=== PATIENT | male | born 1960 | race Caucasian/White ===

== ENCOUNTER 2016-04-26 19:07 | Inpatient (IN) | payer OTHER ==
[~2016-04-26] VITALS: Ht 177.8 cm; Wt 109.6 kg
[2016-04-26 19:25] LABS: BASO % 0.2 %; BASO ABS # 0.03 K/uL (0-0.2); COMPLETE YES; EOS % 0.2 %; HEMATOCRIT 44.3 % (42-52); IG% 0.4 %; LYMPH % 19.6 %; LYMPH ABS # 2.38 K/uL (1.2-3.4); MEAN CELL VOLUME 84.9 fL (80-100); MEAN CORPUSCULAR HEMOGLOBIN 31.6 pg (25-34); MEAN CORPUSCULAR HGB CONC 37.2 g/dl (32-36); MEAN PLATELET VOLUME 11.7 fL (7.4-10.4); MONO % 5.2 %; NEUT % 74.4 %; PLATELET COUNT 225 K/uL (130-400); RED BLOOD COUNT 5.22 M/uL (4.7-6.1); WHITE BLOOD COUNT 12.15 K/uL (4.8-10.8)
[2016-04-26] MEDS ORDERED: NAPR1TAB9 PO (19:34)
[2016-04-26] MEDS ORDERED: CETI10TA84 PO (19:34)
--- NOTE | 2016-04-26 19:45 | DIAGNOSTIC IMAGING REPORT ---
CHEST ONE VIEW PORTABLE CLINICAL HISTORY: Chest pain. COMPARISON STUDY: No previous studies for comparison. FINDINGS: Pacer pads overlie the chest. There is mild elevation of the right hemidiaphragm. Evaluation of the chest is compromised due to overlying pacer pads. No consolidation is identified and there is no evidence of pulmonary edema. There is mild mediastinal widening. Cardiac size is normal. IMPRESSION: 1. No acute cardiopulmonary findings. 2. Mild mediastinal widening, a finding of questionable significance. 3. No evidence of pulmonary edema. Electronically signed by: Tevin Reeder M.D. 04/26/2016 7:43 PM Dictated Date/Time: 04/26/2016 7:42 PM
[2016-04-26 19:53] LABS: BLOOD UREA NITROGEN 19 mg/dl (7-18); BUN/CREATININE RATIO 15.6 (10-20); CALCIUM 9.3 mg/dl (8.5-10.1); CARBON DIOXIDE 20 mmol/L (21-32); CHLORIDE 104 mmol/L (98-107); GLUCOSE 366 mg/dl (70-99); POTASSIUM 4.8 mmol/L (3.5-5.1); SODIUM 137 mmol/L (136-145)
[2016-04-26 20:03] LABS: BETA-HYDROXYBUTYRATE 6.34 mg/dL (0.2-2.81); CKMB/CK RATIO 2.2 (0-3.0)
[2016-04-26] MEDS ORDERED: CETIRIZINE HCL 10 MG TAB PO PRN (21:00)
[2016-04-26] MEDS ORDERED: ONDANSETRON INJ 2 MG/ML 2 ML VIAL IV PRN (21:00)
[2016-04-26] MEDS ORDERED: GLUCOSE 10 TABS/TUBE PO PRN (21:00)
[2016-04-26] MEDS ORDERED: ZOLPIDEM TARTRATE 5 MG TAB PO PRN (21:00)
[2016-04-26] MEDS ORDERED: GLUCAGON FOR INJ 1 MG VIAL SQ PRN (21:00)
[2016-04-26] MEDS ORDERED: GLUCOSE 40% GEL 15 GM TUBE PO PRN (21:00)
[2016-04-26] MEDS ORDERED: DEXTROSE 50% 50 ML SYR IV PRN (21:00)
[2016-04-26] MEDS ORDERED: ACETAMINOPHEN 325 MG TAB PO PRN (21:00)
--- NOTE | 2016-04-26 21:00 | EMERGENCY ROOM VISIT NOTE ---
History Report prepared by Deborah: Nina Zavala Under the Supervision of: Dr. Guerrero Conroy D.O. First contact with patient: 19:03 Chief Complaint: BRADYCARDIA Stated Complaint: CARDIAC, BRADYCARDIA History of Present Illness The patient is a 55 year old male who presents to the Emergency Room via EMS to be evaluated after an episode of syncope that occurred this morning. He states that he completely passed out and woke up on the floor. He notes that he did not hit his head when he fell. Before passing out, the patient felt light headed and dizzy. He denies taking daily medications. Per EMS, the patient stated to feel weak two weeks ago. He went to Urgent Care and was told that he had a third degree heart block. He was also told that his sugars were high. The patient denies headache, neck pain, cough, runny nose, chest pain, nausea, vomiting, diarrhea, abdominal pain, shortness of breath. Source of History: patient, EMS Onset: this morning Position: other (global) Quality: other (syncope, weakness) Timing: other (episode) Associated Symptoms: + LOC, No SOB, No abdominal pain, No chest pain, No headache, No nausea, No neck pain, No vomiting Note: Before passing out, the patient felt light headed and dizzy. The patient stated to feel weak two weeks ago. He denies runny nose. Review of Systems See HPI for pertinent positives & negatives. A total of 10 systems reviewed and were otherwise negative. Past Medical & Surgical Medical Problems: (1) Complete heart block (2) No Known Active Medical Problems Family History No pertinent family history Social History Marital Status: Housing Status: lives with family Occupation Status: employed Current/Historical Medications Scheduled PRN Cetirizine (Zyrtec), 10 MG PO DAILY PRN for ALLERGIC REACTION Naproxen (Aleve), 440 MG PO BID PRN for Headache or Pain Allergies Coded Allergies: Penicillins (Verified Allergy, Unknown, from childhood, 04/26/16) Physical Exam Vital Signs Date Time Temp Pulse Resp B/P Pulse Ox O2 Delivery O2 Flow Rate FiO2 04/26/16 20:54 32 17 96 04/26/16 20:49 36 14 96 04/26/16 20:44 34 15 129/84 97 04/26/16 20:39 34 15 97 04/26/16 20:34 34 10 97 04/26/16 20:29 33 16 138/70 97 04/26/16 20:24 34 15 97 04/26/16 20:19 35 13 97 04/26/16 20:14 34 18 117/63 97 04/26/16 20:09 34 17 97 04/26/16 20:04 33 16 96 04/26/16 19:59 35 19 129/73 97 04/26/16 19:54 34 13 97 04/26/16 19:49 34 14 99 04/26/16 19:44 34 17 135/62 97 04/26/16 19:39 34 15 98 04/26/16 19:34 34 16 98 04/26/16 19:29 132/67 04/26/16 19:27 34 16 97 04/26/16 19:22 34 18 98 04/26/16 19:17 34 13 139/68 04/26/16 19:15 35 04/26/16 19:07 97 Room Air 04/26/16 19:07 97 Room Air 04/26/16 19:07 37.1 35 15 139/68 97 Room Air Physical Exam GENERAL: Sitting up in bed, in no acute distress, nontoxic EYE EXAM: normal conjunctiva OROPHARYNX: no exudate, no erythema, lips, buccal mucosa, and tongue normal and mucous membranes are moist NECK: supple, no nuchal rigidity, no adenopathy, non-tender LUNGS: Clear to auscultation. Normal chest wall mechanics HEART: Bradycardic, no murmurs, S1 normal and S2 normal ABDOMEN: abdomen soft, non-tender, normo-active bowel sounds, no masses, no rebound or guarding. BACK: Back is symmetrical on inspection and there is no deformity, no midline tenderness, no CVA tenderness. SKIN: no rashes and no bruising UPPER EXTREMITIES: upper extremities are grossly normal. LOWER EXTREMITIES: No pitting edema. NEURO EXAM: Normal sensorium, cranial nerves II-XII grossly intact, normal speech, no gross weakness of arms, no gross weakness of legs. Medical Decision & Procedures ER Provider Diagnostic Interpretation: Xray results per the radiologist and my interpretation. CHEST ONE VIEW PORTABLE CLINICAL HISTORY: Chest pain. COMPARISON STUDY: No previous studies for comparison. FINDINGS: Pacer pads overlie the chest. There is mild elevation of the right hemidiaphragm. Evaluation of the chest is compromised due to overlying pacer pads. No consolidation is identified and there is no evidence of pulmonary edema. There is mild mediastinal widening. Cardiac size is normal. IMPRESSION: 1. No acute cardiopulmonary findings. 2. Mild mediastinal widening, a finding of questionable significance. 3. No evidence of pulmonary edema. Electronically signed by: Tevin Reeder M.D. 04/26/2016 7:43 PM Dictated Date/Time: 04/26/2016 7:42 PM Laboratory Results 04/26/16 18:50 Red Blood Count 5.22, Mean Corpuscular Volume 84.9, Mean Corpuscular Hemoglobin 31.6, Mean Corpuscular Hemoglobin Concent 37.2, Mean Platelet Volume 11.7, Neutrophils (%) (Auto) 74.4, Lymphocytes (%) (Auto) 19.6, Monocytes (%) (Auto) 5.2, Eosinophils (%) (Auto) 0.2, Basophils (%) (Auto) 0.2, Neutrophils # (Auto) 9.04, Lymphocytes # (Auto) 2.38, Monocytes # (Auto) 0.63, Eosinophils # (Auto) 0.02, Basophils # (Auto) 0.03 04/26/16 18:50 Test 04/26/16 18:50 White Blood Count 12.15 K/uL (4.8-10.8) Red Blood Count 5.22 M/uL (4.7-6.1) Hemoglobin 16.5 g/dL (14.0-18.0) Hematocrit 44.3 % (42-52) Mean Corpuscular Volume 84.9 fL (80-100) Mean Corpuscular Hemoglobin 31.6 pg (25-34) Mean Corpuscular Hemoglobin Concent 37.2 g/dl (32-36) Platelet Count 225 K/uL (130-400) Mean Platelet Volume 11.7 fL (7.4-10.4) Neutrophils (%) (Auto) 74.4 % Lymphocytes (%) (Auto) 19.6 % Monocytes (%) (Auto) 5.2 % Eosinophils (%) (Auto) 0.2 % Basophils (%) (Auto) 0.2 % Neutrophils # (Auto) 9.04 K/uL (1.4-6.5) Lymphocytes # (Auto) 2.38 K/uL (1.2-3.4) Monocytes # (Auto) 0.63 K/uL (0.11-0.59) Eosinophils # (Auto) 0.02 K/uL (0-0.5) Basophils # (Auto) 0.03 K/uL (0-0.2) RDW Standard Deviation 41.2 fL (36.4-46.3) RDW Coefficient of Variation 13.3 % (11.5-14.5) Immature Granulocyte % (Auto) 0.4 % Immature Granulocyte # (Auto) 0.05 K/uL (0.00-0.02) Anion Gap 13.0 mmol/L (3-11) Est Creatinine Clear Calc Drug Dose 85.6 ml/min Estimated GFR () 78.4 Estimated GFR (Non- 67.7 BUN/Creatinine Ratio 15.6 (10-20) Calcium Level 9.3 mg/dl (8.5-10.1) Total Creatine Kinase 152 U/L (39-308) Creatine Kinase MB 3.3 ng/ml (0.5-3.6) Creatine Kinase MB Ratio 2.2 (0-3.0) Troponin I < 0.015 ng/ml (0-0.045) Beta-Hydroxybutyric Acid 6.34 mg/dL (0.2-2.81) Lyme Disease IgM Antibody NEG (NEG) Laboratory results per my review. ECG Indication: syncope Rate (beats per minute): 35 Rhythm: sinus bradycardia Findings: other (complete heart block) Change: Pre-hospital EKG: Complete heart block at a rate of 3, right axis deviation, right bundle branch block ED Course ED COURSE: Vital signs were reviewed and showed that the patient is bradycardic. The patients medical record was reviewed The above diagnostic studies were performed and reviewed. ED treatments and interventions as stated above. 1904: I reviewed the pre hospital EKG: Complete heart block at a rate of 3, right axis deviation, right bundle branch block 1906: The patient was evaluated in room A1. A complete history and physical examination was performed. 1941: I updated the patient and his family. 2005: I discussed the case with Dr. Gonzalez ([facility]) ; he will further evaluate the patient. 2007: Upon reevaluation, the patient is resting. I discussed my findings with the patient and he understands and agrees with the treatment plan. Based on the patients age, coexisting illnesses, exam and lab findings the decision to treat as an inpatient was made. The patient remained stable while under my care. The patient will be evaluated for further management. Medical Decision Differential diagnosis includes etiologies such as vasovagal event, infection, hypoglycemia, electrolyte abnormalities, cardiac sources, intracerebral event, toxicologic, neurologic, as well as others were entertained. The patient is a 55 year old male who presents to the ED with complaints of an episode of syncope and weakness. Patient notes that he has not been feeling well for the past 2 weeks. He presented to urgent care who did an EKG which showed a complete heart block. He was then transferred via ALS to ER. Upon presentation he is found to have a complete heart block with systolic blood pressures in the 140s. Patient has no other complaints at this time. He denies chest pain and shortness of breath. He does admit to feeling very weak this morning, lightheaded and passing out. He denies any headaches or neck pain. He is completely neurologically intact. Chest x-ray showed a wide mediastinum but as he has no chest pain at this time and consequently did not pursue widened mediastinum as he is currently symptomatically. His case was discussed with internal medicine and will be admitted for complete heart block with a stable systolic blood pressures. Consults Time Called: 1999 Consulting Physician: Dr. Gonzalez ([facility]) Returned Call: 2005 I discussed the case with Dr. Gonzalez ([facility]); he will further evaluate the patient. Impression Primary Impression: Complete heart block Additional Impression: Syncope Scribe Attestation The scribe's documentation has been prepared under my direction and personally reviewed by me in its entirety. I confirm that the note above accurately reflects all work, treatment, procedures, and medical decision making performed by me. Departure Information Dispostion Being Evaluated By Hospitalist Patient Instructions A Signature Page, My [facility] Problem Qualifiers Additional Impression: Syncope Syncope type: heat syncope Encounter type: initial encounter Qualified Codes: T67.1XXA - Heat syncope, initial encounter
[2016-04-26 21:29] VITALS: BP 142/57; PULSE 34; TEMP 36.5; O2SAT 97; BMI 33.1
[2016-04-26] MEDS: NSS + 20MEQ KCL 1000ML 1,000 ML IV SCH (21:51)
[2016-04-26] MEDS: INSULIN ASPART 100 UNITS/ML 3 ML PEN SC SCH (22:34)
--- NOTE | 2016-04-27 03:53 | History and Physical ---
History & Physical Date & Time of Service: Apr 27, 2016 at 03:45 Chief Complaint: Complete Heart Block Primary Care Physician: No Doctor, Assigned History of Present Illness Source: patient, spouse The patient is a 55-year-old male who presents emergency department via EMS after a syncopal episode that occurred earlier in the morning prior to arrival, where he passed out and woke up on the floor. He had an episode of feeling weak approximately 2 weeks ago, and reportedly went to urgent care and was told that he had a third-degree heart block, and that his sugars were high. He admits to not following up appropriately for sugars or heart issues. Family History No pertinent family history Social History Smoking Status: Never Smoker Smokeless Tobacco Use: No Alcohol Use: none Drug Use: none Marital Status: Housing status: lives with family Occupational Status: employed Multi-Drug Resistant Organisms History of MDRO: No Allergies Coded Allergies: Penicillins (Verified Allergy, Unknown, from childhood, 04/26/16) Home Medications Scheduled PRN Cetirizine (Zyrtec), 10 MG PO DAILY PRN for ALLERGIC REACTION Naproxen (Aleve), 440 MG PO BID PRN for Headache or Pain Review of Systems The patient denies chest pain, palpitations, shortness of breath, cough, lower extremity swelling, vision change, hearing change, sore throat, fevers, chills, sweats, weight change, fatigue, nausea, vomiting, abdominal pain, pelvic pain, blood in urine or stool, dysuria, urinary frequency or urgency, rash, abnormal bruising or bleeding, imbalance, focal or generalized weakness, numbness or tingling in arms or legs, arthralgias or myalgias, back or neck pain, night sweats, or allergy symptoms. The review of systems is otherwise negative other than for that already noted above, and at least 10 systems have been reviewed. Physical Exam Vital Signs Date Time Temp Pulse Resp B/P Pulse Ox O2 Delivery O2 Flow Rate FiO2 04/27/16 00:01 Room Air 04/26/16 21:29 36.5 34 16 142/57 97 Room Air 04/26/16 21:26 37.1 33 14 130/70 97 04/26/16 21:05 130/70 04/26/16 21:04 33 14 97 04/26/16 20:59 33 17 116/68 96 04/26/16 20:54 32 17 96 04/26/16 20:49 36 14 96 04/26/16 20:44 34 15 129/84 97 04/26/16 20:39 34 15 97 04/26/16 20:34 34 10 97 04/26/16 20:29 33 16 138/70 97 04/26/16 20:24 34 15 97 04/26/16 20:19 35 13 97 04/26/16 20:14 34 18 117/63 97 04/26/16 20:09 34 17 97 04/26/16 20:04 33 16 96 04/26/16 19:59 35 19 129/73 97 04/26/16 19:54 34 13 97 04/26/16 19:49 34 14 99 04/26/16 19:44 34 17 135/62 97 04/26/16 19:39 34 15 98 04/26/16 19:34 34 16 98 04/26/16 19:29 132/67 04/26/16 19:27 34 16 97 04/26/16 19:22 34 18 98 04/26/16 19:17 34 13 139/68 04/26/16 19:15 35 04/26/16 19:07 97 Room Air 04/26/16 19:07 97 Room Air 04/26/16 19:07 37.1 35 15 139/68 97 Room Air The patient is awake, well-developed and adequately nourished, alert and oriented 3, normocephalic and atraumatic, lying in bed and in no acute distress. HEENT--PERRL, EOMI, mucous membranes moist, and oropharynx normal. Neck--supple, no JVD or bruits, thyroid normal, trachea midline, no adenopathy. Heart--bradycardic, no extra beats, no murmurs, rubs or gallops. Lungs--clear bilaterally with good air movement, no respiratory distress, no accessory muscle use. Abdomen--normal bowel sounds and soft, nontender and nondistended, no hernias or masses, no organomegaly. Extremities--no cyanosis, clubbing or edema. There are good distal pulses b/l. Dermatologic--normal skin turgor, normal color, warm and dry, no abnormal lymph nodes, no rash. Neurologic--cranial nerves II through XII grossly intact, motor and sensory examination normal. Rheumatologic--normal range of motion, nontender, muscles and joints. Psychiatric--normal affect. Diagnostics Laboratory Results Results Past 24 Hours Test 04/26/16 18:50 Range/Units White Blood Count 12.15 4.8-10.8 K/uL Red Blood Count 5.22 4.7-6.1 M/uL Hemoglobin 16.5 14.0-18.0 g/dL Hematocrit 44.3 42-52 % Mean Corpuscular Volume 84.9 80-100 fL Mean Corpuscular Hemoglobin 31.6 25-34 pg Mean Corpuscular Hemoglobin Concent 37.2 32-36 g/dl Platelet Count 225 130-400 K/uL Mean Platelet Volume 11.7 7.4-10.4 fL Neutrophils (%) (Auto) 74.4 % Lymphocytes (%) (Auto) 19.6 % Monocytes (%) (Auto) 5.2 % Eosinophils (%) (Auto) 0.2 % Basophils (%) (Auto) 0.2 % Neutrophils # (Auto) 9.04 1.4-6.5 K/uL Lymphocytes # (Auto) 2.38 1.2-3.4 K/uL Monocytes # (Auto) 0.63 0.11-0.59 K/uL Eosinophils # (Auto) 0.02 0-0.5 K/uL Basophils # (Auto) 0.03 0-0.2 K/uL RDW Standard Deviation 41.2 36.4-46.3 fL RDW Coefficient of Variation 13.3 11.5-14.5 % Immature Granulocyte % (Auto) 0.4 % Immature Granulocyte # (Auto) 0.05 0.00-0.02 K/uL Sodium Level 137 136-145 mmol/L Potassium Level 4.8 3.5-5.1 mmol/L Chloride Level 104 98-107 mmol/L Carbon Dioxide Level 20 21-32 mmol/L Anion Gap 13.0 3-11 mmol/L Blood Urea Nitrogen 19 7-18 mg/dl Creatinine 1.20 0.60-1.40 mg/dl Est Creatinine Clear Calc Drug Dose 85.6 ml/min Estimated GFR () 78.4 Estimated GFR (Non- 67.7 BUN/Creatinine Ratio 15.6 10-20 Random Glucose 366 70-99 mg/dl Calcium Level 9.3 8.5-10.1 mg/dl Total Creatine Kinase 152 39-308 U/L Creatine Kinase MB 3.3 0.5-3.6 ng/ml Creatine Kinase MB Ratio 2.2 0-3.0 Troponin I < 0.015 0-0.045 ng/ml Beta-Hydroxybutyric Acid 6.34 0.2-2.81 mg/dL Lyme Disease IgM Antibody NEG NEG Diagnostic Radiology Patient Name: DAMON DUPREE Unit Number: [id number] Dictated: 04/26/161941 Transcribed: 04/26/161941 Printed Date/Time: [~ rep prt dt]/[~ rep prt tm] [~ rep ct labl] - [~ rep ct ivnm] [facility] [place] [address] Dictated: 04/26/161941 Transcribed: 04/26/161941 JA Printed Date/Time: [~ rep prt dt]/[~ rep prt tm] [~ rep ct labl] - [~ rep ct ivnm] CLINICAL HISTORY: Chest pain. COMPARISON STUDY: No previous studies for comparison. FINDINGS: Pacer pads overlie the chest. There is mild elevation of the right hemidiaphragm. Evaluation of the chest is compromised due to overlying pacer pads. No consolidation is identified and there is no evidence of pulmonary edema. There is mild mediastinal widening. Cardiac size is normal. IMPRESSION: 1. No acute cardiopulmonary findings. 2. Mild mediastinal widening, a finding of questionable significance. 3. No evidence of pulmonary edema. Electronically signed by: Tevin Reeder M.D. 04/26/2016 7:43 PM Dictated Date/Time: 04/26/2016 7:42 PM The status of this report is Signed. Draft = Not yet reviewed or approved by Radiologist. Signed = Reviewed and approved by Radiologist. <AttendingPhy></AttendingPhy> <FamilyPhy></FamilyPhy> <PrimaryPhy></PrimaryPhy> <UnitNumber>[id number]</UnitNumber> <VisitNumber>[id number]</VisitNumber> < PatientName>DAMON DUPREE SHAUN</PatientName> <DateOfBirth>1960</ DateOfBirth> <Location>[facility]</Location> <ServiceDate>04/26/16</ServiceDate> <MNE> ESINDI</MNE> <OrderingPhy>Guerrero Conroy DO</OrderingPhy> <OrderingPhyMNE>f rep ord dr live</OrderingPhyMNE> <DictatingPhyMNE>f rep dict dr live</DictatingPhyMNE > <CCListMNE>f rep ct brigide</CCListMNE> <AdmittingPhyMNE>f pt admit dr live</ AdmittingPhyMNE> <AttendingPhyMNE>f pt attend dr live</AttendingPhyMNE> <ConsultingPhyMNE>f pt consult dr live</ConsultingPhyMNE> <FamilyPhyMNE>f pt fam dr live</FamilyPhyMNE> <OtherPhyMNE>f pt other dr live</OtherPhyMNE> < PrimaryPhyMNE>f pt prim care dr live</PrimaryPhyMNE> <ReferringPhyMNE>f pt referring dr live</ReferringPhyMNE> EKG EKG shows third-degree heart block at a ventricular rate of 35 bpm. Impression Assessment and Plan Syncopal episode associated with third degree heart block--patient will be admitted to the telemetry unit for serial cardiac enzymes, cardiac rhythm monitoring, and a 2-D echocardiogram with Dopplers. We'll continue to keep pacer pads on, but he is not symptomatic at this time. We will gently hydrate with IV fluids, and keep him nothing by mouth after midnight for any potential procedure. We'll consult Dr. Toro from EPS. Hyperglycemia with diabetes mellitus--place on Accu-Cheks before meals and at bedtime with NovoLog coverage, and order a hemoglobin A1c. Based on these tests , we'll determine in the a.m. when his long-term treatment should be. We'll check a fasting lipid profile as well. Allergy--continue cetirizine 10 mg by mouth daily when necessary. Level of Care Telemetry Advanced Directives Existing Advance Directive: No Existing Living Will: No Existing Power of Board Saw Runner: No Resuscitation Status FULL RESUSCITATION VTE Prophylaxis VTE Risk Assessment Done? Y/N: Yes Risk Level: Moderate Given or contraindicated: SCD's Social Service Consult None Apply
[2016-04-27 04:01] VITALS: BP 117/74; PULSE 72; TEMP 36.7; O2SAT 96
[2016-04-27 04:28] LABS: BASO % 0.2 %; BASO ABS # 0.02 K/uL (0-0.2); COMPLETE YES; EOS % 0.8 %; HEMATOCRIT 43.2 % (42-52); IG% 0.3 %; LYMPH % 30.1 %; LYMPH ABS # 2.81 K/uL (1.2-3.4); MEAN CELL VOLUME 85.9 fL (80-100); MEAN CORPUSCULAR HGB CONC 36.1 g/dl (32-36); MEAN PLATELET VOLUME 11.4 fL (7.4-10.4); MONO % 7.2 %; NEUT % 61.4 %; PLATELET COUNT 182 K/uL (130-400); RED BLOOD COUNT 5.03 M/uL (4.7-6.1); WHITE BLOOD COUNT 9.33 K/uL (4.8-10.8)
[2016-04-27 04:39] LABS: PARTIAL THROMBOPLASTIN RATIO 0.9; PROTHROMBIN TIME (PATIENT) 10.8 SECONDS (9.0-12.0)
[2016-04-27 05:00] LABS: BUN/CREATININE RATIO 19.3 (10-20); CALCIUM 8.4 mg/dl (8.5-10.1); CREATININE 0.88 mg/dl (0.60-1.40); MAGNESIUM 2.2 mg/dl (1.8-2.4)
[2016-04-27 05:03] LABS: CHOLESTEROL/HDL RATIO 4.5
[2016-04-27 07:26] LABS: ESTIMATED AVERAGE GLUCOSE 246 mg/dl; HA1C FLAG Normal (Normal)
[2016-04-27] MEDS: NSS + 20MEQ KCL 1000ML 1,000 ML IV SCH (08:00)
[2016-04-27 08:27] VITALS: BP 126/76; PULSE 67; TEMP 37.2; O2SAT 96
[2016-04-27] MEDS: INSULIN ASPART 100 UNITS/ML 3 ML PEN SC SCH ×4 (09:05→21:10)
[2016-04-27 09:48] LABS: CKMB/CK RATIO 2.4 (0-3.0)
--- NOTE | 2016-04-27 11:06 | ECHOCARDIOGRAM REPORT ---
*NOTICE TO RECEIVING [employer] This information is strictly Confidential and protected under [place] law. [place] law prohibits you from making any further disclosure of this information unless further disclosure is expressly permitted by the written consent of the person to whom it pertains or is authorized by law. A general authorization for the release of medical or other information is not sufficient for this purpose. Hospital accepts no responsibility if the information is made available to any other person, INCLUDING THE PATIENT. Interpretation Summary * Name: DAMON DUPREE Study Date: 04/27/2016 07:49 AM BP: 117/74 mmHg * Patient Location: C.2E\S\E208\S\1 HR: 72 * : 1960 (M/d/yyyy) Gender: Male Height: 70 in * Age: 55 yrs Ethnicity: [place] Weight: 237 lb * Ordering Physician: Adonis Gonzalez * Performed By: Nina Rodriguez * * Reason For Study: COMPLETE HEART BLOCK * BSA: 2.2 m2 * -- Conclusions -- * Left ventricular systolic function is normal. * No regional wall motion abnormalities noted. * Ejection Fraction = 60-65%. * No significant valvular pathology. Procedure Details * A complete two-dimensional transthoracic echocardiogram was performed (2D, M-mode, Doppler and color flow Doppler). * A contrast injection of Definity was performed to improve assessment of LV function. * Contrast was injected into an intravenous site in the left arm. * One vial of Definity ultrasound contrast was diluted in normal saline to a total volume of 10 ml. A total of '3' ml of solution was administered during imaging. * Lot # [id number] of Definity utilized for procedure. * Expiration date 10/01. Left Ventricle * The left ventricle is normal in size. * There is normal left ventricular wall thickness. * Left ventricular systolic function is normal. * Ejection Fraction = 60-65%. * No regional wall motion abnormalities noted. Right Ventricle * The right ventricle is grossly normal size. * The right ventricular systolic function is normal as assessed by tricuspid annular plane systolic excursion (TAPSE) (normal >1.5 cm). Atria * The left atrial size is normal. * Right atrial size is normal. * No ASD detected; PFO is not assessed. Mitral Valve * The mitral valve is normal in structure and function. * There is no mitral valve stenosis. * There is trace mitral regurgitation. Tricuspid Valve * The tricuspid valve is not well visualized, but is grossly normal. * Significant tricuspid regurgitation is absent. Aortic Valve * The aortic valve is normal in structure and function. * No hemodynamically significant valvular aortic stenosis. * There is no significant aortic regurgitation. Pulmonic Valve * The pulmonary valve is not well seen, but the Doppler examination is normal without significant regurgitation or stenosis. * There is no pulmonic valvular regurgitation. Great Vessels * The aortic root is normal size. * Mildly dilated ascending aorta. Pericardium/Pleural * There is no pericardial effusion. MMode 2D Measurements and Calculations IVSd 1.0 cm IVSs 1.6 cm LVIDd 3.9 cm LVIDs 2.1 cm LVPWd 0.85 cm LVPWs 1.4 cm IVS/LVPW 1.2 FS 45.1 % EDV(Teich) 65.6 ml ESV(Teich) 15.1 ml EF(Teich) 77.1 % EDV(cubed) 59.0 ml ESV(cubed) 9.8 ml EF(cubed) 83.5 % % IVS thick 57.7 % % LVPW thick 58.1 % LV mass(C)d 110.2 grams LV mass(C)dI 49.1 grams/m\S\2 LV mass(C)s 101.5 grams LV mass(C)sI 45.3 grams/m\S\2 CO(Teich) 3.5 l/min CI(Teich) 1.6 l/min/m\S\2 SV(Teich) 50.6 ml SI(Teich) 22.5 ml/m\S\2 CO(cubed) 3.4 l/min CI(cubed) 1.5 l/min/m\S\2 SV(cubed) 49.2 ml SI(cubed) 21.9 ml/m\S\2 ACS 1.4 cm asc Aorta Diam 3.4 cm LVOT diam 2.0 cm LVOT area 3.1 cm\S\2 LVAd ap4 27.5 cm\S\2 LVLd ap4 9.0 cm EDV(MOD-sp4) 68.0 ml LVAs ap4 15.4 cm\S\2 LVLs ap4 7.7 cm ESV(MOD-sp4) 26.0 ml EF(MOD-sp4) 61.8 % LVAd ap2 28.9 cm\S\2 LVLd ap2 8.6 cm EDV(MOD-sp2) 79.0 ml LVAs ap2 16.9 cm\S\2 LVLs ap2 8.2 cm ESV(MOD-sp2) 30.0 ml EF(MOD-sp2) 62.0 % CO(MOD-sp4) 2.9 l/min CI(MOD-sp4) 1.3 l/min/m\S\2 SV(MOD-sp4) 42.0 ml SI(MOD-sp4) 18.7 ml/m\S\2 CO(MOD-sp2) 3.4 l/min CI(MOD-sp2) 1.5 l/min/m\S\2 SV(MOD-sp2) 49.0 ml SI(MOD-sp2) 21.8 ml/m\S\2 Doppler Measurements and Calculations MV E max cayla 101.7 cm/sec MV A max cayla 62.2 cm/sec MV E/A 1.6 MV dec time 0.19 sec Ao V2 max 138.5 cm/sec Ao max PG 7.7 mmHg Ao max PG (full) 2.9 mmHg BRYNN(V,A) 2.4 cm\S\2 BRYNN(V,D) 2.4 cm\S\2 LV V1 max PG 4.8 mmHg LV V1 mean PG 2.2 mmHg LV V1 max 109.3 cm/sec LV V1 mean 65.6 cm/sec LV V1 VTI 23.3 cm SV(LVOT) 71.6 ml SI(LVOT) 31.9 ml/m\S\2 PA V2 max 64.2 cm/sec PA max PG 1.6 mmHg
[2016-04-27 11:10] VITALS: BP 118/70; PULSE 68; TEMP 36.7; O2SAT 96
[2016-04-27 11:21] VITALS: BMI 33.2
[2016-04-27] MEDS ORDERED: BACITRACIN 50000 UNIT VIAL ONE (11:48)
[2016-04-27] MEDS ORDERED: LIDOCAINE HCL 1% 20 ML VIAL ONE (11:48)
[2016-04-27] MEDS ORDERED: BUPIVACAINE 0.5 % 5 MG/1 ML MPF 30ML VIAL ONE (11:48)
--- NOTE | 2016-04-27 11:59 | Procedure Note ---
Pre-Mod Sedation Assessment General Date of Moderate Sedation: Apr 27, 2016. Vital Signs: Vital Signs Past 12 Hours Date Time Temp Pulse Resp B/P Pulse Ox O2 Delivery O2 Flow Rate FiO2 04/27/16 11:10 36.7 68 20 118/70 96 Room Air 04/27/16 08:27 37.2 67 20 126/76 96 Room Air 04/27/16 08:00 Room Air 04/27/16 04:01 36.7 72 17 117/74 96 Room Air 04/27/16 04:00 Room Air 04/27/16 00:01 Room Air Review Cardiovascular: regular rate, rhythm, no JVD, no murmur Abdomen: soft Lungs: lungs clear Airway Class: II Pre-Sedation Airway Assessment Oral Cavity: WNL Able to Visualize Vocal Cords: No Short Thick Neck: Yes Hx of Sleep Apnea: No Smoking Status: Never Smoker Mallampati Classification: Class II ASA Classification: Class II Procedure Planning Contraindications-for Mod Sed: None Yes Notes The planned sedation has been discussed with the patient and consent obtained. I have identified the patient, determined the appropriateness of sedation and have assessed the patient immediately prior to the procedure. All medicine(s) and interventions are by my order.
--- NOTE | 2016-04-27 11:59 | History & Physical Bridge Note ---
H&P Re-Evaluation Bridge Note: I have examined the patient, reviewed the History & Physical and in the interval since the performance of the History & Physical I have noted the following changes of clinical significance: Full EP consult dictated. Pt with intermittent CHB symptomatic; lyme titer negative no other clear etiology. Pt for dual chamber ppm.
[2016-04-27] MEDS ORDERED: CLINDAMYCIN IV 600 MG in DEXTROSE 5% ADD-VANTAGE 50ML 50 ML IV SCH (12:00)
[2016-04-27] MEDS ORDERED: FENTANYL CITRATE INJ 50 MCG/1 ML 2 ML VIAL ONE ×2 (12:19→13:24)
[2016-04-27] MEDS ORDERED: MIDAZOLAM HCL 5 MG/ML 1 ML VIAL ONE (12:19)
[2016-04-27] MEDS ORDERED: RANITIDINE HCL 25 MG/ML INJ ONE (12:45)
[2016-04-27] MEDS ORDERED: DiphenhydrAMINE HCL 50 MG/ML VIAL ONE (12:45)
[2016-04-27] MEDS ORDERED: HYDROCORTISONE SOD SUCCINATE 100 MG/2 ML VIAL ONE (12:45)
--- NOTE | 2016-04-27 12:46 | CARDIOLOGY CONSULTATION ---
DATE OF CONSULTATION: 04/27/2016 PERTINENT HISTORY: Mr. Case is a 55-year-old white male admitted yesterday with complaints of dizziness and a complete heart block. This consultation was ordered to assist in his cardiac management. The patient's recent history began approximately 2 or 1-1/2 weeks ago. The patient began to develop profound episodes of dizziness lasting 10-15 minutes. This seemed to occur every 3-4 days. Yesterday, while bending over, the patient developed another episode of his profound dizziness. He stood up and then fell backwards. He does not feel any loss of consciousness. He presented to a walk-in medical clinic and his heart rate was noted to be 30 beats per minute. He was sent directly to the Emergency Room for further care. On arrival here, the patient was noted to be in complete heart block. He was still complaining of dizziness. The patient then converted to sinus rhythm overnight and is now completely asymptomatic. The patient has never known of a cardiac event. He has never had a cardiac catheterization. He has never experienced exertional chest pain or limiting dyspnea. He further denies gagan syncope, PND, orthopnea, palpitations, lower extremity edema, and claudication. Complaints of presyncope as described above. Currently, the patient is resting comfortably in bed without complaints. He had a long discussion regarding treatment of intermittent complete heart block. PAST MEDICAL HISTORY: 1. Diabetes mellitus. 2. Allergic rhinitis. MEDICATIONS: 1. Zyrtec 10 mg daily. 2. Insulin sliding scale. ALLERGIES: PENICILLIN -- HIVES. SOCIAL HISTORY: The patient works in construction. He is and lives with his . He does not smoke cigarettes, but does chew tobacco. Admits to drinking 1 case of beer every week. FAMILY HISTORY: Father is 83 and has had a lobectomy for tuberculosis back in the 60s. Mother is 82 and relatively healthy. Siblings are alive and well. REVIEW OF SYSTEMS: A 10-point review of systems is negative except for that described above. TODAY'S PHYSICAL EXAMINATION: GENERAL: He is a well-developed and well-nourished white male, in no acute distress. VITAL SIGNS: Blood pressure is 118/70 with a regular pulse of 60. Respiratory rate is 20. The patient is afebrile at 36.7 degrees Celsius. Saturations 96% on room air. HEENT: Negative. NECK: Supple with full carotid upstrokes. There are no carotid bruits. Jugular venous pressure is flat at 90 degrees. There is no thyromegaly. CARDIOVASCULAR: Reveals a regular rhythm with normal S1 and S2. No S3, S4, or murmurs are noted. LUNGS: Clear without rales, rhonchi, or wheezes. ABDOMEN: Soft and nontender without bruits. EXTREMITIES: Reveal intact radial artery pulses bilaterally. There is no peripheral edema. DATA: CBC notes a hemoglobin of 15.6, hematocrit 43.2, white count 9.3, and platelet count 180,000. Electrolytes note a sodium of 139, potassium 4.0, chloride 106, bicarbonate 23, BUN 17, creatinine 0.8, and glucose 249. Magnesium level is normal at 2.2. Troponin I level is undetectable at less than 0.015 on 2 occasions. Lipid panel notes a total cholesterol of 232, triglyceride 213, LDL 138, and HDL of 51. TSH is normal at 1.49. INR is 1.0. Lyme titer is negative. EKG on presentation notes sinus tachycardia with complete AV dissociation. There is a junctional escape at approximately 35 beats per minute. A followup ECG notes sinus rhythm and a complete right bundle branch block. tractor trailer operator confirms the same. IMPRESSION: Mr. Case was admitted with symptomatic intermittent complete heart block. The case was discussed in detail with Dr. Browning, who agrees that permanent pacemaking is indicated. The procedure will be performed later today. PLAN: 1. Consult Dr. Browning for dual chamber permanent pacemaker. 2. Further recommendations after the above.
--- NOTE | 2016-04-27 13:58 | Procedure Note ---
Post-Mod Sedation Assessment General Date of Moderate Sedation Apr 27, 2016. Vital Signs: Vital Signs Past 12 Hours Date Time Temp Pulse Resp B/P Pulse Ox O2 Delivery O2 Flow Rate FiO2 04/27/16 12:00 Room Air 04/27/16 11:10 36.7 68 20 118/70 96 Room Air 04/27/16 08:27 37.2 67 20 126/76 96 Room Air 04/27/16 08:00 Room Air 04/27/16 04:01 36.7 72 17 117/74 96 Room Air 04/27/16 04:00 Room Air Review - Discharge Criteria Vital Signs Stable: Yes Alert/Oriented/Conversant: Yes Returned to Baseline Mental St: Yes Nausea Absent/Minimal: Yes Pain/Discomfort/Absent/Minimal: Yes Normal/Baseline Respirations: Yes Active Bleeding?: No Pt Received D/C Instructions: N/A Prescriptions Given: None Specific Proced. D/C Criteria Distal Pulses Present (Cardiac: N/A Groin site assessed-Card Cath: N/A Voided Prior To Discharge: N/A Discharged Patients Adult Escort/Transportation: N/A
[2016-04-27] MEDS ORDERED: ACETAMINOPHEN 325 MG TAB PO PRN (14:00)
--- NOTE | 2016-04-27 14:03 | [facility] Post Operative Brief Note ---
Immediate Operative Summary Operative Date Apr 27, 2016. Pre-Operative Diagnosis INTERMITTENT CHB Post-Operative Diagnosis SAME Procedure(s) Performed DUAL CHAMBER RATE RESPONSIVE PACEMAKER WITH PERHIPHERAL VENOGRAM Surgeon BILL EPPERSON Rn Perioperative Surgeon(s) NONE Estimated Blood Loss <20CC Findings NONE Fluids (cc crystalloids) 150CC Specimens NONE Drains NONE Anesthesia 5MG VERSED AND 125MCG FENANTYL Complication(s) None Disposition PCU
--- NOTE | 2016-04-27 15:21 | Progress Note ---
Subjective Date of Service: Apr 27, 2016. (Farideh Trevino PA-C) Subjective Pt evaluation today including: conversation w/ patient, conversation w/ family , physical exam, chart review, lab review, review of studies, review of inpatient medication list Patient seen and evaluated. Patient with 3rd degree heart block that spontaneously converted to NSR overnight. Only complaint is of some lightheadedness while resting in bed. Patient's HR remained in 70s during my exam. Discussed glucose levels with patient and the need to implement medication and establish PCP. He reports that he was aware his sugars were high but has not taken medications for that. Spoke with Dr. Seymour this AM who evaluated the patient. He underwent pacemaker placement today. (Farideh Trevino PA-C) Problem List Medical Problems: (1) Syncope Status: Acute (Farideh Trevino PA-C) Review of Systems Constitutional: No chills, No fever Eyes: No worsening of vision ENT: No sore throat, No trouble swallowing Respiratory: No cough, No shortness of breath Cardiac: No chest pain Abdomen: No constipation, No diarrhea, No nausea, No pain, No vomiting Male : No dysuria Neurologic: + problem reported (lightheadedness) Skin: No rash (Farideh Trevino PA-C) Medications Current Inpatient Medications Medications (Trade) Dose Ordered Sig/Merissa Route Start Time Stop Time Status Last Admin Dose Admin Potassium Chloride/Sodium Chloride (Nss + 20meq KCl 1000ml) 1,000 ml @ 100 mls/hr Q10H IV 04/26/16 22:00 05/26/16 21:59 04/27/16 08:00 100 MLS/HR Zolpidem Tartrate (Ambien Tab) 5 mg HSZ PRN PO 04/26/16 21:00 05/26/16 20:59 Ondansetron HCl (Zofran Inj) 4 mg Q6H PRN IV 04/26/16 21:00 05/26/16 20:59 Insulin Aspart (novoLOG ASPART) SLIDING SCALE If C... ACHS SC 04/26/16 21:00 05/26/16 20:59 04/27/16 11:00 3 UNITS Glucose (Glucose 40% Gel) UD PRN PO 04/26/16 21:00 05/26/16 20:59 Glucose (Glucose Chew Tab) 1 tabs UD PRN PO 04/26/16 21:00 05/26/16 20:59 Dextrose (Dextrose 50% 50ML Syringe) 50 ml UD PRN IV 04/26/16 21:00 05/26/16 20:59 Glucagon (Glucagon Inj) 1 mg UD PRN SQ 04/26/16 21:00 05/26/16 20:59 Cetirizine HCl 10 mg 10 mg DAILY PRN PO 04/26/16 21:00 05/26/16 20:59 Clindamycin Phosphate/Dextrose (Cleocin Iv/ Dextrose Add-[place] 50ML) 54 ml @ 100 mls/hr 1200 IV 04/27/16 12:00 04/27/16 16:00 04/27/16 12:00 100 MLS/HR Oxycodone/ Acetaminophen (Percocet 5-325MG Tab) 1 tab for pain scale 4-6 2 t... Q6H PRN PO 04/27/16 14:00 05/11/16 13:59 Acetaminophen (Tylenol Tab) 650 mg Q4H PRN PO 04/27/16 14:00 05/27/16 13:59 (Farideh Trevino, SHELBI) Objective Vital Signs Date Time Temp Pulse Resp B/P Pulse Ox O2 Delivery O2 Flow Rate FiO2 04/27/16 14:10 68 18 130/83 94 Room Air 04/27/16 13:55 67 18 128/79 98 Nasal Cannula 6 04/27/16 12:00 Room Air 04/27/16 11:10 36.7 68 20 118/70 96 Room Air 04/27/16 08:27 37.2 67 20 126/76 96 Room Air 04/27/16 08:00 Room Air 04/27/16 04:01 36.7 72 17 117/74 96 Room Air 04/27/16 04:00 Room Air 04/27/16 00:01 Room Air 04/26/16 21:29 36.5 34 16 142/57 97 Room Air 04/26/16 21:26 37.1 33 14 130/70 97 04/26/16 21:05 130/70 04/26/16 21:04 33 14 97 04/26/16 20:59 33 17 116/68 96 04/26/16 20:54 32 17 96 04/26/16 20:49 36 14 96 04/26/16 20:44 34 15 129/84 97 04/26/16 20:39 34 15 97 04/26/16 20:34 34 10 97 04/26/16 20:29 33 16 138/70 97 04/26/16 20:24 34 15 97 04/26/16 20:19 35 13 97 04/26/16 20:14 34 18 117/63 97 04/26/16 20:09 34 17 97 04/26/16 20:04 33 16 96 04/26/16 19:59 35 19 129/73 97 04/26/16 19:54 34 13 97 04/26/16 19:49 34 14 99 04/26/16 19:44 34 17 135/62 97 04/26/16 19:39 34 15 98 04/26/16 19:34 34 16 98 04/26/16 19:29 132/67 04/26/16 19:27 34 16 97 04/26/16 19:22 34 18 98 04/26/16 19:17 34 13 139/68 04/26/16 19:15 35 04/26/16 19:07 97 Room Air 04/26/16 19:07 97 Room Air 04/26/16 19:07 37.1 35 15 139/68 97 Room Air (Farideh Trevino, PA-C) Physical Exam General Appearance: WD/WN, no apparent distress, + pertinent finding ( mentating appropriately; alert) Eyes: sclerae normal ENT: hearing grossly normal Neck: supple, thyroid normal, no JVD, trachea midline Respiratory/Chest: lungs clear, normal breath sounds, no respiratory distress, no accessory muscle use Cardiovascular: regular rate, rhythm, no gallop, no murmur Abdomen: normal bowel sounds, non tender, soft Extremities: + pertinent finding (2+ posterior tibialis pulses; extremities warm to touch without cyanosis) Neurologic/Psychiatric: alert, oriented x 3 Skin: normal color, warm/dry (Farideh Trevino, PA-C) Laboratory Results Last 24 Hours Test 04/26/16 18:50 04/27/16 04:04 04/27/16 06:58 04/27/16 09:02 White Blood Count 12.15 K/uL 9.33 K/uL Red Blood Count 5.22 M/uL 5.03 M/uL Hemoglobin 16.5 g/dL 15.6 g/dL Hematocrit 44.3 % 43.2 % Mean Corpuscular Volume 84.9 fL 85.9 fL Mean Corpuscular Hemoglobin 31.6 pg 31.0 pg Mean Corpuscular Hemoglobin Concent 37.2 g/dl 36.1 g/dl Platelet Count 225 K/uL 182 K/uL Mean Platelet Volume 11.7 fL 11.4 fL Neutrophils (%) (Auto) 74.4 % 61.4 % Lymphocytes (%) (Auto) 19.6 % 30.1 % Monocytes (%) (Auto) 5.2 % 7.2 % Eosinophils (%) (Auto) 0.2 % 0.8 % Basophils (%) (Auto) 0.2 % 0.2 % Neutrophils # (Auto) 9.04 K/uL 5.73 K/uL Lymphocytes # (Auto) 2.38 K/uL 2.81 K/uL Monocytes # (Auto) 0.63 K/uL 0.67 K/uL Eosinophils # (Auto) 0.02 K/uL 0.07 K/uL Basophils # (Auto) 0.03 K/uL 0.02 K/uL RDW Standard Deviation 41.2 fL 41.7 fL RDW Coefficient of Variation 13.3 % 13.3 % Immature Granulocyte % (Auto) 0.4 % 0.3 % Immature Granulocyte # (Auto) 0.05 K/uL 0.03 K/uL Sodium Level 137 mmol/L 139 mmol/L Potassium Level 4.8 mmol/L 4.0 mmol/L Chloride Level 104 mmol/L 106 mmol/L Carbon Dioxide Level 20 mmol/L 23 mmol/L Anion Gap 13.0 mmol/L 10.0 mmol/L Blood Urea Nitrogen 19 mg/dl 17 mg/dl Creatinine 1.20 mg/dl 0.88 mg/dl Est Creatinine Clear Calc Drug Dose 85.6 ml/min 114.8 ml/min Estimated GFR () 78.4 112.1 Estimated GFR (Non- 67.7 96.7 BUN/Creatinine Ratio 15.6 19.3 Random Glucose 366 mg/dl 249 mg/dl Estimated Average Glucose 246 mg/dl Hemoglobin A1c 10.2 % Calcium Level 9.3 mg/dl 8.4 mg/dl Total Creatine Kinase 152 U/L 89 U/L Creatine Kinase MB 3.3 ng/ml 2.1 ng/ml Creatine Kinase MB Ratio 2.2 2.4 Troponin I < 0.015 ng/ml < 0.015 ng/ml Beta-Hydroxybutyric Acid 6.34 mg/dL Lyme Disease IgM Antibody NEG Prothrombin Time 10.8 SECONDS Prothromb Time International Ratio 1.0 Activated Partial Thromboplast Time 24.0 SECONDS Partial Thromboplastin Ratio 0.9 Magnesium Level 2.2 mg/dl Triglycerides Level 213 mg/dl Cholesterol Level 232 mg/dl HDL Cholesterol 51 mg/dl LDL Cholesterol, Calculated 138 mg/dl VLDL Cholesterol, Calculated 43 mg/dl Cholesterol/HDL Ratio 4.5 Bedside Glucose 222 mg/dl Thyroid Stimulating Hormone (TSH) 1.490 uIu/ml Test 04/27/16 11:38 Bedside Glucose 227 mg/dl (Farideh Trevino, YUDITHC) Assessment and Plan Syncope 2/2 Intermittent Third Degree Heart Block S/P Pacemaker: - Patient spontaneously converted to NSR overnight - Serial cardiac enzymes negative - Echo - EF 60-65%; no valvular abnormality - Cardiology following - pacemaker placed T2DM: New Diagnosis: - HbA1c 10.2 - glucose running in 250s-300s - Start Metformin 500 mg BID and Glipizide 5 mg daily - SSI with goal 100-150 and CF 30 HLD: - Patient with triglycerides 213 and LDL 232 DVT Prophylaxis: - TEDs/SCDs Code Status: - FULL RESUSCITATION Disposition: - Will establish him with PCP prior to D/C (Farideh Trevino PA-C) PA Physician Supervision Note: I interviewed and examined the patient. Discussed with Farideh Trevino PAC and agree with findings and plan as documented in the note. Any exceptions or clarifications are listed here: None PT did have complete heart block with symptoms on presentation and uncontrolled diabetes as evidenced by hgb A1c of 10+ did have Pacemaker placed today compliance is issue and although initially thinking of insulin when pt was thought of would be once a week, but when told would be more will more liklely want medications. will start glipizide and metformin vss now car is regular without murmur lungs are clear complete heart block, ppm diabetes start po meds, education and follow up dyslipidemia, liklely influenced from glucose, will control diabetes, tune up diet and re test as outpt Documented By: Will Payne (Will Payne M.D.)
[2016-04-27] MEDS: OXYCODONE/ACETAMINOPHEN 5-325 TAB PO PRN ×2 (15:32→18:40)
[2016-04-27 15:43] VITALS: BP 118/59; PULSE 88; TEMP 36.8; O2SAT 94
[2016-04-27] MEDS: METFORMIN HCL 500 MG TAB PO SCH (16:45)
[2016-04-27 19:54] VITALS: BP 126/81; PULSE 93; TEMP 36.8; O2SAT 95
[2016-04-27] MEDS ORDERED: NURSING VERBAL MED ORDER ONE (20:45)
[2016-04-28 00:24] VITALS: BP 102/64; PULSE 70; TEMP 37; O2SAT 97
[2016-04-28] MEDS: OXYCODONE/ACETAMINOPHEN 5-325 TAB PO PRN ×2 (05:43→12:51)
[2016-04-28 06:06] LABS: BASO % 0.2 %; HEMATOCRIT 41.5 % (42-52); MEAN CELL VOLUME 87.2 fL (80-100); MEAN CORPUSCULAR HEMOGLOBIN 31.1 pg (25-34); MEAN CORPUSCULAR HGB CONC 35.7 g/dl (32-36); MEAN PLATELET VOLUME 11.3 fL (7.4-10.4); MONO % 6.7 %; NEUT % 65.8 %; PLATELET COUNT 161 K/uL (130-400); RED BLOOD COUNT 4.76 M/uL (4.7-6.1); WHITE BLOOD COUNT 10.11 K/uL (4.8-10.8)
[2016-04-28 06:07] LABS: BASO ABS # 0.02 K/uL (0-0.2); COMPLETE YES; IG% 0.3 %; LYMPH ABS # 2.63 K/uL (1.2-3.4)
[2016-04-28 06:25] LABS: INR 0.9 (0.9-1.1); PARTIAL THROMBOPLASTIN RATIO 0.9
[2016-04-28 06:42] LABS: BUN/CREATININE RATIO 14.3 (10-20); CALCIUM 8.5 mg/dl (8.5-10.1); CREATININE 0.98 mg/dl (0.60-1.40); POTASSIUM 4.5 mmol/L (3.5-5.1)
[2016-04-28] MEDS: METFORMIN HCL 500 MG TAB PO SCH (07:31)
[2016-04-28] MEDS: INSULIN ASPART 100 UNITS/ML 3 ML PEN SC SCH ×2 (07:32→11:50)
--- NOTE | 2016-04-28 07:52 | DIAGNOSTIC IMAGING REPORT ---
CHEST 2 VIEWS ROUTINE CLINICAL HISTORY: Pacemaker insertion. COMPARISON STUDY: Chest radiograph April 26, 2016. FINDINGS: No pneumothorax is identified. There has been interval placement of a dual lead left subclavian pacemaker. Lead tips project over the right atrial appendage and the right ventricle. Cardiomediastinal silhouette is stable. There is no evidence of pulmonary edema. There is no consolidation. Note is made of mild elevation of the right hemidiaphragm. IMPRESSION: No pneumothorax following placement of a dual lead left subclavian pacemaker Electronically signed by: Tevin Reeder M.D. 04/28/2016 7:50 AM Dictated Date/Time: 04/28/2016 7:48 AM
[2016-04-28 07:58] VITALS: BP 107/76; PULSE 75; TEMP 36.8; O2SAT 95
[2016-04-28 08:00] VITALS: O2SAT 95
[2016-04-28] MEDS ORDERED: OXYC-57 PO (10:55)
[2016-04-28] MEDS ORDERED: GLC5 PO (10:55)
[2016-04-28] MEDS ORDERED: GLC500 PO (10:55)
--- NOTE | 2016-04-28 11:18 | Discharge Instructions ---
Discharge Instructions Admission Reason for Admission: Complete Heart Block Discharge Discharge Diagnosis / Problem: Complete Heart Block S/P Pacemaker Discharge Goals Goal(s): Decrease discomfort, Improve function, Increase independence Activity Recommendations Activity Limitations: as noted below Lifting Limitations: until after follow-up appointment Exercise/Sports Limitations: until after follow-up appointment May Resume Sexual Activity: after follow-up appointment Shower/Bathe: keep incision dry Driving or Machine Use: no limitations . Instructions / Follow-Up Instructions / Follow-Up Syncope from Intermittent Third Degree Heart Block S/P Pacemaker: - When you were admitted your heart rate was around the 30s per minute. This is the reason why you passed out. - You had a pacemaker placed which will help to make your heart pump if you would have a lower heart rate. - We will give you a prescription for pain medication to use just as needed. You may take 1-2 pills depending on how much pain you are having -- Be careful as these medications can cause you to be drowsy. Do not drive or operate heavy equipment while taking these medications - Please follow recommendations from your heart doctor and keep appointments for further management. Type 2 Diabetes: - When you came in your sugars were high and your hemoglobin A1c which shows how your sugars run over a 3 month period was high at 10.2 and we would like this number closer to 6 - You have been given a device to monitor your sugars please check your sugars before meals and at bedtime and keep a log of these readings to give to your family doctor. - You will also be started on oral medications to control your sugar. Please take as prescribed -- METFORMIN 500 MG TWICE A DAY -- GLIPIZIDE 5 MG TO TAKE IN THE MORNING - Please follow-up with the family doctor that you will be established with for ongoing monitoring - When cleared by the heart doctors a good exercise routine and diet control will help with sugar readings - Eat a low carb diet. Avoid high sugar foods such as soda. High Cholesterol: - Your triglycerides and LDL (bad) cholesterol was elevated. This may be related to the rise in sugar levels - Recommend a good diet and a recheck with your family doctor in a few months. - When sugars are better and if these levels are still up you may need to be started on a medication for cholesterol by your family doctor Follow-Up: - Please follow up with your heart doctor as scheduled - Please follow-up with your family doctor as scheduled. Current Hospital Diet Patient's current hospital diet: Diabetes Type 2 Diet Discharge Diet Recommended Diet: AHA Diet (Heart Healthy), Diabetes Type 2 Diet Procedures Procedures Performed: DUAL CHAMBER RATE RESPONSIVE PACEMAKER WITH PERHIPHERAL VENOGRAM Pending Studies Studies pending at discharge: no Laboratory Results Hemoglobin A1c Test 04/26/16 18:50 Range/Units Estimated Average Glucose 246 mg/dl Hemoglobin A1c 10.2 H 4.5-5.6 % Lipid Panel Test 04/27/16 04:04 Range/Units Triglycerides Level 213 H 0-150 mg/dl Cholesterol Level 232 H 0-200 mg/dl HDL Cholesterol 51 mg/dl Cholesterol/HDL Ratio 4.5 LDL Cholesterol, Calculated 138 mg/dl Medical Emergencies . Who to Call and When: Medical Emergencies: If at any time you feel your situation is an emergency, please call 911 immediately. . Non-Emergent Contact Non-Emergency issues call your: Primary Care Provider . . "Provider Documentation" section prepared by Farideh Trevino. VTE Core Measure Inpt VTE Proph given/why not?: SCD's [place] Drug Monitoring Program Search Results: patient reviewed within database, no issues identified
[2016-04-28 12:26] VITALS: BP 107/76; PULSE 75; TEMP 36.8; O2SAT 95
--- NOTE | 2016-04-28 12:46 | Cardiology Follow-Up ---
Subjective Subjective Date of Service: Apr 28, 2016. Pt evaluation today including: conversation w/ patient Pain: minimal discomfort at incision Problem List Medical Problems: (1) Syncope Status: Acute Review of Systems Constitutional: No fever Eyes: No worsening of vision Respiratory: No shortness of breath Cardiac: No chest pain, No edema, No palpitations Abdomen: No diarrhea, No nausea Male : No dysuria Skin: No rash Objective Vital Signs Last Vital Signs Documentation Date Time Temp Pulse Resp B/P Pulse Ox O2 Delivery O2 Flow Rate FiO2 04/28/16 12:26 36.8 75 20 95 Room Air 04/28/16 07:58 107/76 04/27/16 13:55 6 Physical Exam: General Appearance: WD/WN, no apparent distress, + pertinent finding ( mentating appropriately; alert) Eyes: bilateral eyes EOMI, bilateral eyes PERRL, bilateral eyes abnormal EOM Neck: supple, no JVD Respiratory/Chest: lungs clear, normal breath sounds Cardiovascular: regular rate, rhythm, no edema, no murmur Abdomen: normal bowel sounds, non tender, soft Extremities: no pedal edema Neurologic/Psychiatric: alert, oriented x 3 Skin: normal color, warm/dry (no ecchymosis; no hematoma incision intact) Assessment and Plan impression; intermittent CHB s/p dual chamber 04/27/2016 dm Plan -ok for discharge from EP perspective -normal pacemaker function -pt not allowed to lift the left elbow over the left shoulder for 1 month or lift more than 10 pounds with the left arm for 2 weeks -pt to follow up in [facility] in 7-10 days Medications: Medications Administered Medications (Trade) Dose Ordered Sig/Merissa Route Start Time Stop Time Status Last Admin Dose Admin Potassium Chloride/Sodium Chloride (Nss + 20meq KCl 1000ml) 1,000 ml @ 100 mls/hr Q10H IV 04/26/16 22:00 04/27/16 20:40 DC 04/27/16 08:00 100 MLS/HR Insulin Aspart SLIDING SCALE If C... ACHS SC 04/26/16 21:00 05/26/16 20:59 04/28/16 07:32 5 UNITS Clindamycin Phosphate/Dextrose (Cleocin Iv/ Dextrose Add-[place] 50ML) 54 ml @ 100 mls/hr 1200 IV 04/27/16 12:00 1/11/17 16:00 DC 04/27/16 12:00 100 MLS/HR Fentanyl Citrate (Fentanyl Inj) 100 mcg STK-MED ONCE .ROUTE 04/27/16 12:19 04/27/16 12:20 DC 04/27/16 12:19 100 MCG Midazolam HCl (Versed Inj) 5 mg STK-MED ONCE .ROUTE 04/27/16 12:19 04/27/16 12:21 DC 04/27/16 12:19 5 MG Fentanyl Citrate (Fentanyl Inj) 100 mcg STK-MED ONCE .ROUTE 04/27/16 13:24 04/27/16 13:25 DC 04/27/16 13:24 25 MCG Oxycodone/ Acetaminophen (Percocet 5-325MG Tab) 1 tab for pain scale 4-6 2 t... Q6H PRN PO 04/27/16 14:00 05/11/16 13:59 04/28/16 05:43 2 TAB Metformin HCl (Glucophage Tab) 500 mg BIDM PO 04/27/16 16:45 05/27/16 16:44 04/28/16 07:31 500 MG Glipizide (Glucotrol Tab) 5 mg QAM PO 04/28/16 09:00 05/28/16 08:59 04/28/16 07:30 5 MG Lab Results: ECG:SR Telemetry: SR Pacemaker INterrogation: normal function and stable CXR: No PTX leads in place but appears to be some less slack than at implant Last 24 Hours Test 04/27/16 16:18 04/27/16 20:21 04/28/16 05:40 04/28/16 07:01 Bedside Glucose 221 mg/dl 209 mg/dl 279 mg/dl White Blood Count 10.11 K/uL Red Blood Count 4.76 M/uL Hemoglobin 14.8 g/dL Hematocrit 41.5 % Mean Corpuscular Volume 87.2 fL Mean Corpuscular Hemoglobin 31.1 pg Mean Corpuscular Hemoglobin Concent 35.7 g/dl Platelet Count 161 K/uL Mean Platelet Volume 11.3 fL Neutrophils (%) (Auto) 65.8 % Lymphocytes (%) (Auto) 26.0 % Monocytes (%) (Auto) 6.7 % Eosinophils (%) (Auto) 1.0 % Basophils (%) (Auto) 0.2 % Neutrophils # (Auto) 6.65 K/uL Lymphocytes # (Auto) 2.63 K/uL Monocytes # (Auto) 0.68 K/uL Eosinophils # (Auto) 0.10 K/uL Basophils # (Auto) 0.02 K/uL RDW Standard Deviation 43.3 fL RDW Coefficient of Variation 13.4 % Immature Granulocyte % (Auto) 0.3 % Immature Granulocyte # (Auto) 0.03 K/uL Prothrombin Time 10.0 SECONDS Prothromb Time International Ratio 0.9 Activated Partial Thromboplast Time 23.7 SECONDS Partial Thromboplastin Ratio 0.9 Sodium Level 138 mmol/L Potassium Level 4.5 mmol/L Chloride Level 103 mmol/L Carbon Dioxide Level 25 mmol/L Anion Gap 10.0 mmol/L Blood Urea Nitrogen 14 mg/dl Creatinine 0.98 mg/dl Est Creatinine Clear Calc Drug Dose 105.6 ml/min Estimated GFR () 100.2 Estimated GFR (Non- 86.4 BUN/Creatinine Ratio 14.3 Random Glucose 272 mg/dl Calcium Level 8.5 mg/dl Magnesium Level 2.0 mg/dl Test 04/28/16 11:34 Bedside Glucose 140 mg/dl
--- NOTE | 2016-04-28 12:49 | Discharge Summary ---
Discharge Summary Admission Date: Apr 26, 2016 at 20:54 Discharge Date: Apr 28, 2016 Discharge Disposition: Home Principal Diagnosis: 3rd Degree Complete Heart Block with Syncope; Type 2 Diabetes Mellitus Procedures: 1. Pacemaker Insertion Consultations: 1. Cardiology - Dr. Seymour and Dr. Browning - Pacemaker Insertion (Farideh Trevino PA-C) Medication Reconciliation New Medications: Glipizide (Glipizide) 5 Mg Tab 5 MG PO QAM, #30 TAB Metformin HCl (Metformin HCl) 500 Mg Tab 500 MG PO BIDM for 30 Days, TAB Oxycodone/Acetaminophen 5MG/325MG (Percocet 5MG/325MG) Tab 2 TAB PO Q6H PRN for Pain for 3 Days, TAB PAIN Continued Medications: Cetirizine (Zyrtec) 10 Mg Tab 10 MG PO DAILY PRN for ALLERGIC REACTION, TAB Naproxen (Aleve) 220 Mg Tab 440 MG PO BID PRN for Headache or Pain, TAB Discharge Exam Review of Systems: Constitutional: No chills, No fever Eyes: No worsening of vision ENT: No nasal symptoms, No sore throat, No trouble swallowing Respiratory: No cough, No dyspnea at rest, No dyspnea on exertion, No shortness of breath Cardiovascular: + chest pain (non-cardiac at site of pacemaker) Abdomen: No constipation, No diarrhea, No nausea, No pain, No vomiting Musculoskeletal: No calf pain, No swelling Genitourinary - Male: No dysuria Neurologic: + numbness/tingling (intermittent lower extremity (chronic)), No vertigo Endocrine: No fatigue Hematologic / Lymphatic: No abnormal bleeding/bruising, No clotting problems Integumentary: No rash (Farideh Trevino, YUDITHC) Hospital Course ADMISSION: The patient is a 55-year-old male who presents emergency department via EMS after a syncopal episode that occurred earlier in the morning prior to arrival, where he passed out and woke up on the floor. He had an episode of feeling weak approximately 2 weeks ago, and reportedly went to urgent care and was told that he had a third-degree heart block, and that his sugars were high. He admits to not following up appropriately for sugars or heart issues. HOSPITAL COURSE: Syncope 2/2 Intermittent Third Degree Heart Block S/P Pacemaker: POD #1 - Assessment - Patient spontaneously converted to NSR overnight (04/27) and has remained in NSR with adequate HR noted - Imaging and Studies -- Serial cardiac enzymes negative -- Echo - EF 60-65%; no valvular abnormality -- CXR (04/28) - no evidence of pneumothorax and adequate placement of pacemaker - Dual Chamber Rate Responsive Pacemaker with Peripheral Venogram performed T2DM: - Assessment - In setting of A1c initial insulin administration considered however concern for patient compliance. Patient mentioned utilizing a weekly insulin injection but discussed that new onset diabetes cannot be treated with these novel agents and he would require multiple injections daily to control glucose readings. Patient also initially without PCP follow-up and have decided to initiate oral anti-diabetic agents until further guidance given. Noted patient with Metformin in the past and glucose monitoring strips expensive resulting in non-compliance. Patient is agreeable to insulin therapy and may be instituted at PCP discretion. - HbA1c 10.2 - glucose running in 250s-300s - Start Metformin 500 mg BID and Glipizide 5 mg daily - Rx given HLD: - Patient with triglycerides 213 and LDL 232 in setting of hyperglycemia - Patient instructed to follow-up with PCP that was established through case management for repeat testing when glucose controlled for possible medication implementation Disposition: - PCP follow-up with [facility] - Dr. Luis Manuel Echevarria on May 04, 2016 at 1015 with further referral to j2ee consultant if needed - Patient with vitals stable and no acute complaints, tolerating oral anti- diabetics without adverse effect, and is suitable for D/C home with outpatient follow-up - Rx: -- Metformin 500 mg BID -- Glipizide 5 mg daily -- Percocet Q6H x 3 days - reviewed in [place] Drug Monitoring System - no issues noted Total Time Spent: Greater than 30 minutes This includes examination of the patient, discharge planning, medication reconciliation, and communication with other providers. (Farideh Trevino, PA-C) PA Physician Supervision Note: I interviewed and examined the patient. Discussed with Farideh Trevino PAC and agree with findings and plan as documented in the note. Any exceptions or clarifications are listed here: None PT did have pacemaker and done well counselled about diabetic compliance with meds and diet vitals are stable car is regular lungs are clear complete heart block, pacemaker placed diabetes start glipizide, metformin, follow up as outpt, pt is considering [facility] as his is there Documented By: Will Payne (Will Payne M.D.) Discharge Instructions Please refer to the electronic Patient Visit Report (Discharge Instructions) for additional information. (Farideh Trevino, PADiannC)
--- NOTE | 2016-04-28 15:01 | CARDIOLOGY PROGRESS NOTE ---
DATE: 04/28/2016 SUBJECTIVE: Mr. Case is resting comfortably in bed without complaints of chest pain or dyspnea. Postoperative pain is adequately controlled. OBJECTIVE: VITAL SIGNS: Blood pressure 107/76 with a regular pulse of 75. Respiratory rate is 20. The patient is afebrile at 36.8 degrees Celsius. Saturation is 95% on room air. NECK: Supple with full carotid upstrokes. There are no carotid bruits. Jugular venous pressure is flat at 90 degrees. There is no thyromegaly. CHEST: Reveals a dry dressing in the left subclavicular region. CARDIOVASCULAR: Regular rhythm with normal S1 and S2. No S3. LUNGS: Clear without rales, rhonchi, or wheezes. ABDOMEN: Soft, nontender without bruits. EXTREMITIES: Reveal intact radial artery pulses bilaterally. There is no peripheral edema. DATA: CBC notes hemoglobin 14.8, hematocrit 41.5, white count 10.1, platelet count 161,000. Electrolytes note a sodium of 138, potassium 4.5, chloride 103, bicarbonate 25, BUN 14, creatinine 0.9, glucose 272. front desk monitor notes sinus rhythm and appropriate pacing. IMPRESSION AND PLAN: 1. Status post DDD pacemaker -- per Dr. Browning. The patient prefers follow up with [facility]. 2. Intermittent complete heart block -- as previously. 3. Disposition -- stable for hospital discharge. MARK
[2016-04-28 21:10] VITALS: Ht 177.8 cm; Wt 109.6 kg
--- NOTE | 2016-05-04 14:57 | CARDIOLOGY CONSULTATION ---
DATE OF CONSULTATION: 04/27/2016 CONSULTING PHYSICIAN: Dr. Crow Seymour. REASON FOR CONSULTATION: Intermittent complete heart block. HISTORY OF PRESENT ILLNESS: This is a 55-year-old gentleman who has known significant past medical history who has been experiencing dizziness and fatigue with profound weakness over the last month very subtle; however, the symptoms escalated and he went to a walk-in medical clinic where his heart rate was noted to be in the 30s and he was sent directly to the [facility] Emergency Room. In the Emergency Room, he was found to be in complete heart block with ventricular escape in the 30s. He was admitted overnight and he did convert to sinus rhythm and is now asymptomatic. He denies any chest pains, palpitations; denies any overt syncope; denies any lower extremity edema. PAST MEDICAL HISTORY: He has diabetes, but he is only on insulin sliding scale and allergic rhinitis. MEDICATIONS AT HOME: Zyrtec and insulin. ALLERGIES: HE HAS AN ALLERGY TO PENICILLIN. SOCIAL HISTORY: He works in construction. He is . He does not smoke but he does chew tobacco and does have a significant alcohol use of at least a case of beer a week. FAMILY HISTORY: Contributory for his father having lobectomy for tuberculosis when he was in his 60s. He is currently 83. His mother is in her 80s and alive and healthy. Siblings are alive and healthy. REVIEW OF SYSTEMS: All other 10-point review of systems is reviewed and is essentially negative at this time. PHYSICAL EXAMINATION: VITAL SIGNS: Heart rate at 68, respirations 20, blood pressure 118/70, oxygen saturation 96%. GENERAL: He is awake, alert and oriented x3, in no acute distress, sitting up in bed comfortably. HEENT: Normocephalic, atraumatic. Extraocular movements intact. Sclerae is nonicteric. Mucous membranes moist. NECK: Supple, no carotid bruits appreciated. No JVD. Carotid upstrokes normal. CARDIOVASCULAR: Normal S1, S2, regular rate and rhythm, no murmur appreciated. No palpable heave or thrill. PULMONARY: Clear to auscultation bilaterally. No wheezes, rales or rhonchi. ABDOMEN: Positive bowel sounds, soft, nontender. EXTREMITIES: No clubbing or cyanosis of bilateral fingers. No edema bilateral lower extremities. Peripheral pulses intact. NEUROLOGIC: Grossly intact. SKIN: Grossly intact. PERTINENT TESTING: A 12-lead ECGs on admission he was in sinus tachycardia with AV dissociation and idioventricular escape at 35 beats per minute with a right bundle branch block. A repeat EKG showed sinus rhythm at 86 beats per minute with right bundle branch block, possible inferior CA. Echocardiogram revealed a preserved ejection fraction, nondilated cardiac chambers and no significant valvular disease. Lyme titer was negative. CBC: WBC is 10, hemoglobin 14, hematocrit 41, platelets 161. BMP: Sodium 138, potassium 4.5, chloride 103, carbon dioxide 25, BUN 14, creatinine 0.98, glucose 272, calcium 8.5, magnesium 2. IMPRESSION: 1. Intermittent complete heart block. 2. Diabetic not on any medications. 3. Allergic rhinitis. PLAN: Recommend a dual chamber permanent pacemaker secondary to symptomatic intermittent complete heart block of any unclear irreversible etiology. Discussed the risks, benefits and alternatives to the procedure; risks include but not limited to sudden cardiac , cardiac arrhythmias, cerebrovascular accident, myocardial infarction, injury to the blood vessels, chamber of the heart, bleeding, injury to the lungs, bleeding and infection. The patient understood these risks and agreed to go to the procedure as planned. Informed consent was obtained. MARK
--- NOTE | 2016-05-04 15:32 | OPERATIVE REPORT ---
DATE OF OPERATION: 04/27/2016 PREOPERATIVE DIAGNOSIS: Intermittent complete heart block. POSTOPERATIVE DIAGNOSIS: Same. PROCEDURE: Dual chamber rate responsive permanent pacemaker under fluoroscopic guidance along with a peripheral venogram. SURGEON: Dr. Brii Browning. TIMBER BUCKER: None. ANESTHESIA: 5 mg of Versed, 125 mcg of fentanyl. Start time was 1236 and end time was 1355. INTRAVENOUS FLUIDS: 150 mL. INTRAVENOUS CONTRAST: 10 mL. COMPLICATIONS: None. CONDITION: Stable. URINE OUTPUT: Not applicable. SPECIMENS: None. FINDINGS: None. DRAINS: None. INDICATIONS: This is a 55-year-old gentleman with no significant past medical history who has been having episodes of near syncope, lightheadedness, dizziness and found to have intermittent complete heart block, recommended dual chamber permanent pacemaker. CONSENT: Consent was obtained prior to the patient going into the electrophysiology lab. The patient was informed of risks, benefits, alternatives to the procedure. Risks include but not limited to sudden cardiac , cardiac arrhythmias, cerebrovascular accident, myocardial infarction, injury to the blood vessels, chamber of the heart, bleeding and infection. The patient understood these risks and agreed to the procedure as planned. Informed consent was obtained. DESCRIPTION OF THE PROCEDURE: The patient was brought into the electrophysiology lab in a fasting state. He was connected to continuous cardiac monitoring. A timeout was performed to ensure patient's identity and procedure correctly. The patient was prepped and draped over the left infraclavicular space in normal surgical standard fashion. Moderate conscious sedation was given throughout the procedure for patient's comfort level. [place] precautions were maintained throughout the procedure. 10 mL of 1% lidocaine, bupivacaine mixture were given in the left deltopectoral groove. Incision was made in left deltopectoral groove and blunt dissection was performed down to identify the cephalic vein; however, none could be identified. So a peripheral venogram using 10 mL of IV contrast diluted in 10 mL of saline, followed by 20 mL flush was performed. The axillary vein was identified and a needle stick was performed to obtain access. The guidewire was inserted without any resistance. An 8-Citizen [place] sheath was inserted over the guidewire without any resistance. The dilator was removed and a second guidewire was inserted through the sheath to allow for retained venous access. The sheath was then removed, flushed, dilator reinserted and then the sheath was reinserted over one of the guidewires without any resistance. The guidewire and dilator were removed. Right ventricular pacing lead was then advanced into the right ventricle and positioned into the right ventricular apex under fluoroscopic guidance. There was no diaphragmatic stimulation with high output pacing and there was adequate sensing and thresholds. The 8-Citizen [place] sheath was peeled away and lead was fixated to pectoralis muscle using 0 silk suture. A second 8-Citizen [place] sheath was inserted over the retained guidewire without any resistance. The guidewire and dilator removed. The right atrial lead was then advanced into the right atrium and positioned into the right atrial appendage under fluoroscopic guidance. There was adequate pacing and sensing thresholds and no diaphragmatic stimulation with high output pacing. The 8-Citizen [place] sheath was peeled away and lead was fixated to pectoralis muscle using 0 silk suture. An additional 5 mL of 1% lidocaine, bupivacaine were given over the pectoralis muscle within the fascia. Using blunt dissection, a pacemaker pocket was created over the pectoralis muscle within the fascia. The pocket was flushed with copious amounts of bacitracin saline wash and inspected for hemostasis. The pulse generator was then attached to the leads, making sure that the pins were in appropriate position, passed the set screws and set screws were all tightened. The pulse generator was then placed in the pocket, making sure the leads were lying flat beneath the device. Daina stat was placed in the pocket to prevent any further oozing. A stay stitch was used to secure the pacemaker generator to the pectoralis muscle using 0 silk suture. The incision was closed in a 3-layer fashion using 2-0 Vicryl interrupted suture, followed by 3-0 Vicryl interrupted suture, followed by a 4-0 Monocryl running stitch and Dermabond was applied. EQUIPMENT: 1. The pulse generator is a [employer] [id number], serial #[id number]. 2. Right atrial lead Medtronic 5076-52 cm, serial #[id number]. 3. Right ventricular lead Medtronic 5076-58 cm, serial #[id number]. INTRAOPERATIVE TESTIN. Right atrial lead: P-wave sensing 3.1 millivolts, impedance 645 ohms, threshold 0.4 volts at 0.5 milliamps. 2. Right ventricular lead: R-wave sensing was 3.4 millivolts and on paper was 5-6, impedance 663 ohms, threshold 0.6 volts at 1 milliamp. FINAL MEASUREMENTS THROUGH THE DEVICE: 1. Right atrial lead: P-wave sensing 2.6 millivolts, impedance 532 ohms, threshold 0.75 volts at 0.4 milliseconds. 2. Right ventricular lead: R-wave sensing 5 millivolts, impedance 551 ohms, threshold 0.5 volts at 0.4 milliseconds. FINAL PARAMETERS: MVP-R 60/50, right atrial amplitude 2.5 volts, pulse width 0.4 milliseconds, sensitivity 0.3 millivolts. Right ventricular amplitude 3.5 volts, pulse width 0.4 milliseconds, sensitivity 1.2 millivolts. IMPRESSION: Successful implantation of dual chamber rate responsive permanent pacemaker under fluoroscopic guidance along with peripheral venogram secondary to intermittent complete heart block. PLAN: Monitor patient overnight, 12-lead ECG, chest x-ray. He is not allowed to lift left elbow or left shoulder for 1 month. He cannot lift more than 10 pounds with the left arm for 2 weeks. He should follow up in our [place] office in 7-10 days for device and wound check. He can shower in 2 days, let water run over the incision, do not scrub it. I attest to the content of the Intraoperative Record and any orders documented therein. Any exceptions are noted below. MARK
== END 2016-04-28 13:28 | disposition home or self-care (01) | DRG 244 ==
LOC: ENRESERVTM → ENRESERVDT → EDBD 19:07 → C.ED 19:14 → C.2E 20:54
PROVIDERS: ADMIT Hospitalist; ATTEND Internal Medicine
PROC: 0JH606Z Insertion of Pacemaker, Dual Chamber into Chest Subcutaneous Tissue and Fascia, Open Approach (ICD-10-PCS; principal; 2016-04-27 11:47)
PROC: 02HK3JZ Insertion of Pacemaker Lead into Right Ventricle, Percutaneous Approach (ICD-10-PCS; principal; 2016-04-27 11:47)
PROC: 02H63JZ Insertion of Pacemaker Lead into Right Atrium, Percutaneous Approach (ICD-10-PCS; principal; 2016-04-27 11:47)
DX: I44.2 Atrioventricular block, complete (principal); R55 Syncope and collapse; E11.65 Type 2 diabetes mellitus with hyperglycemia; E78.5 Hyperlipidemia, unspecified; J30.9 Allergic rhinitis, unspecified; Z91.19 Patient's noncompliance with other medical treatment and regimen; Z72.0 Tobacco use